=== PATIENT | female | born 1975 | race Asian ===

== ENCOUNTER 2020-08-07 19:42 | Inpatient (IN) | payer OTHER ==
[~2020-08-07] VITALS: Ht 152.4 cm; Wt 57.6 kg
[2020-08-07 20:06] VITALS: Ht 152.4 cm; Wt 57.6 kg
[2020-08-07 20:46] LABS: BASOPHIL % 0.7 % (0.2-1.3); PLATELET COUNT 133 x10^3mcL (179-408); RED CELL DISTRIBUTION WIDTH 13.9 % (12.3-17.7)
[2020-08-07 20:51] LABS: CHLORIDE SERUM 101 mmol/L (98-107); CREATININE SERUM 0.6 mg/dL (0.6-1.0); GFR1 > 60 mL/min; GLUCOSE SERUM 103 mg/dL (74-106); SODIUM SERUM 135 mmol/L (136-145)
[2020-08-07 20:56] LABS: ALKALINE PHOSPHATASE 298 U/L (46-116); ALT/SGPT 397 U/L (14-59); AST/SGOT 902 U/L (15-37); BILIRUBIN TOTAL 0.3 mg/dL (0.20-1.00); LIPASE 111 IU/L (73-393); TOTAL PROTEIN, SERUM 7.3 g/dL (6.4-8.2)
[2020-08-07 21:10] LABS: ALBUMIN 3.2 g/dL (3.4-5.0)
[2020-08-07 22:37] LABS: UA SPECIFIC GRAVITY <=1.005 (1.005-1.035); microscopic required? YES; urine erythrocyte 2+ (NEGATIVE)
[2020-08-08 02:08] VITALS: BP 103/58
[2020-08-08 05:32] VITALS: BP 103/61
[2020-08-08 07:38] LABS: PLATELET COUNT 153 x10^3mcL (179-408); RED CELL DISTRIBUTION WIDTH 13.9 % (12.3-17.7)
[2020-08-08 07:58] VITALS: BP 99/52
[2020-08-08 08:12] LABS: CALCIUM 8.5 mg/dL (8.5-10.1); CARBON DIOXIDE 22.2 mmol/L (21-32); CHLORIDE SERUM 103 mmol/L (98-107); CREATININE SERUM 0.6 mg/dL (0.6-1.0); GFR1 > 60 mL/min; GLUCOSE SERUM 110 mg/dL (74-106); MAGNESIUM 2.5 mg/dL (1.8-2.4); POTASSIUM SERUM 3.8 mmol/L (3.5-5.1); SODIUM SERUM 137 mmol/L (136-145); TRIGLYCERIDES 164 mg/dL (<150)
[2020-08-08 08:20] LABS: CHOLESTEROL 112 mg/dL (<200); HDL CHOLESTEROL 16 mg/dL (40-60)
[2020-08-08 08:27] LABS: BAND NEUTROPHIL 3 % (0-10); MONOCYTE 10 % (0-7); PLATELET MORPHOLOGY PLATELETS NORMAL; SEGMENTED NEUTROPHILS 55 % (37-75); rbc morphology (normal/abnorm) NORMAL (NORMAL)
[2020-08-08 16:56] VITALS: BP 93/50
[2020-08-08 21:18] VITALS: BP 124/64
[2020-08-09 05:49] VITALS: BP 120/62
[2020-08-09 06:19] LABS: PLATELET COUNT 174 x10^3mcL (179-408); RED CELL DISTRIBUTION WIDTH 14.1 % (12.3-17.7)
[2020-08-09 07:11] LABS: CHLORIDE SERUM 102 mmol/L (98-107); POTASSIUM SERUM 3.9 mmol/L (3.5-5.1); SODIUM SERUM 136 mmol/L (136-145)
[2020-08-09 08:15] LABS: ALKALINE PHOSPHATASE 317 U/L (46-116); ALT/SGPT 459 U/L (14-59); AST/SGOT 851 U/L (15-37); BILIRUBIN TOTAL 0.23 mg/dL (0.20-1.00); CALCIUM 8.4 mg/dL (8.5-10.1); CARBON DIOXIDE 23.4 mmol/L (21-32); CREATININE SERUM 0.6 mg/dL (0.6-1.0); GFR1 > 60 mL/min; GLUCOSE SERUM 113 mg/dL (74-106)
[2020-08-09 08:25] LABS: ALBUMIN 2.5 g/dL (3.4-5.0)
[2020-08-09 08:27] VITALS: BP 91/50
[2020-08-09 12:13] VITALS: BP 107/59
[2020-08-09 12:58] LABS: C REACTIVE PROTEIN 5.3 mg/dL (<=0.9)
[2020-08-09 14:48] LABS: BAND NEUTROPHIL 7 % (0-10); MONOCYTE 10 % (0-7); PLATELET MORPHOLOGY PLATELETS NORMAL; SEGMENTED NEUTROPHILS 39 % (37-75); rbc morphology (normal/abnorm) NORMAL (NORMAL)
[2020-08-09 16:57] VITALS: BP 108/60
[2020-08-09 19:50] VITALS: BP 110/58
[2020-08-10 05:00] VITALS: BP 110/54
[2020-08-10 08:25] VITALS: BP 103/56
[2020-08-10 11:53] VITALS: BP 109/64
[2020-08-10 16:46] VITALS: BP 103/58
[2020-08-10 18:25] LABS: ALKALINE PHOSPHATASE 339 U/L (46-116); ALT/SGPT 363 U/L (14-59); AST/SGOT 443 U/L (15-37); BILIRUBIN TOTAL 0.2 mg/dL (0.20-1.00); CALCIUM 8.3 mg/dL (8.5-10.1); CARBON DIOXIDE 26.5 mmol/L (21-32); CHLORIDE SERUM 102 mmol/L (98-107); CREATININE SERUM 0.4 mg/dL (0.6-1.0); GFR1 > 60 mL/min; GLUCOSE SERUM 120 mg/dL (74-106); POTASSIUM SERUM 3.7 mmol/L (3.5-5.1); SODIUM SERUM 134 mmol/L (136-145); TOTAL PROTEIN, SERUM 6.3 g/dL (6.4-8.2)
[2020-08-10 20:05] VITALS: BP 112/67
[2020-08-10 22:42] LABS: ALBUMIN 2.5 g/dL (3.4-5.0)
[2020-08-11 05:40] VITALS: BP 111/70
[2020-08-11 07:05] LABS: PLATELET COUNT 281 x10^3mcL (179-408); RED CELL DISTRIBUTION WIDTH 14.2 % (12.3-17.7)
[2020-08-11 07:33] LABS: ALKALINE PHOSPHATASE 349 U/L (46-116); ALT/SGPT 290 U/L (14-59); AST/SGOT 321 U/L (15-37); BILIRUBIN TOTAL 0.2 mg/dL (0.20-1.00); CALCIUM 8.5 mg/dL (8.5-10.1); CARBON DIOXIDE 26.4 mmol/L (21-32); CHLORIDE SERUM 103 mmol/L (98-107); CREATININE SERUM 0.5 mg/dL (0.6-1.0); GFR1 > 60 mL/min; GLUCOSE SERUM 115 mg/dL (74-106); MAGNESIUM 2.2 mg/dL (1.8-2.4); POTASSIUM SERUM 3.8 mmol/L (3.5-5.1); SODIUM SERUM 139 mmol/L (136-145); TOTAL PROTEIN, SERUM 6.5 g/dL (6.4-8.2)
[2020-08-11 07:40] LABS: ALBUMIN 2.5 g/dL (3.4-5.0)
[2020-08-11 08:32] LABS: BAND NEUTROPHIL 4 % (0-10); MONOCYTE 18 % (0-7); SEGMENTED NEUTROPHILS 42 % (37-75)
[2020-08-11 08:33] LABS: PLATELET MORPHOLOGY PLATELETS NORMAL; rbc morphology (normal/abnorm) NORMAL (NORMAL)
[2020-08-11 08:40] VITALS: BP 101/58
[2020-08-11 13:09] VITALS: BP 108/61
[2020-08-11 15:25] LABS: PLATELET COUNT 426 x10^3mcL (130-400)
[2020-08-11 15:29] LABS: RED CELL DISTRIBUTION WIDTH 14.2 % (11.5-14.5)
[2020-08-11 17:29] VITALS: BP 109/65
[2020-08-11 17:30] VITALS: BP 145/73
[2020-08-11 20:40] VITALS: BP 105/52
[2020-08-12 05:07] VITALS: BP 98/57
[2020-08-12 07:28] LABS: BASOPHIL % 0.4 % (0.2-1.3); PLATELET COUNT 323 x10^3mcL (179-408); RED CELL DISTRIBUTION WIDTH 14.3 % (12.3-17.7)
[2020-08-12 08:45] LABS: ALKALINE PHOSPHATASE 376 U/L (46-116); ALT/SGPT 250 U/L (14-59); AST/SGOT 253 U/L (15-37); BILIRUBIN TOTAL 0.3 mg/dL (0.20-1.00); CALCIUM 8.6 mg/dL (8.5-10.1); CARBON DIOXIDE 26.4 mmol/L (21-32); CHLORIDE SERUM 102 mmol/L (98-107); CREATININE SERUM 0.4 mg/dL (0.6-1.0); GFR1 > 60 mL/min; GLUCOSE SERUM 96 mg/dL (74-106); POTASSIUM SERUM 3.8 mmol/L (3.5-5.1); SODIUM SERUM 138 mmol/L (136-145); TOTAL PROTEIN, SERUM 6.4 g/dL (6.4-8.2)
[2020-08-12 08:46] LABS: ALBUMIN 2.5 g/dL (3.4-5.0)
[2020-08-12 08:49] VITALS: BP 120/59
[2020-08-12 10:15] LABS: BILIRUBIN DIRECT 0.13 mg/dL (0.0-0.2); BILIRUBIN TOTAL 0.3 mg/dL (0.20-1.00); TOTAL PROTEIN, SERUM 6.4 g/dL (6.4-8.2)
[2020-08-12 10:18] LABS: ALBUMIN 2.5 g/dL (3.4-5.0)
[2020-08-12 11:59] VITALS: BP 114/60
[2020-08-12] MEDS ORDERED: ELA10 PO (13:03)
[2020-08-12 14:16] VITALS: BP 114/60
== END 2020-08-12 17:48 | disposition home or self-care (01) | DRG 392 ==
LOC: ED 19:42 → DU 22:53
PROVIDERS: Emergency Medicine; Internal Medicine; Internal Medicine Gastroenterology; Specialist; ADMIT Hospitalist; ATTEND Hospitalist
PROC: BF141ZZ Fluoroscopy of Gallbladder, Bile Ducts and Pancreatic Ducts using Low Osmolar Contrast (ICD-10-PCS; 2020-08-11)
PROC: 0DB68ZX Excision of Stomach, Via Natural or Artificial Opening Endoscopic, Diagnostic (ICD-10-PCS; principal; 2020-08-11 08:30)
PROC: 0DB78ZX Excision of Stomach, Pylorus, Via Natural or Artificial Opening Endoscopic, Diagnostic (ICD-10-PCS; 2020-08-11 08:30)
PROC: 0F798ZZ Dilation of Common Bile Duct, Via Natural or Artificial Opening Endoscopic (ICD-10-PCS; 2020-08-11 08:30)
DX: K29.70 Gastritis, unspecified, without bleeding (principal); K82.8 Other specified diseases of gallbladder; I10 Essential (primary) hypertension; R74.01 Elevation of levels of liver transaminase levels; K31.7 Polyp of stomach and duodenum; Z20.822 Contact with and (suspected) exposure to COVID-19
CPT/HCPCS: 43235; 43262; 78226; 83880; 85378; 90658; A9537; C1769; G0378; J1610; J1885; J2270; J2405; J2543; J2704; J7030; J7120; Q9967; U0003